=== PATIENT | female | born 1940 | race Caucasian/White ===

== ENCOUNTER → 2017-09-03 | Outpatient (CLI) | payer MEDICARE ==
[2015-04-14 18:02] VITALS: BP 130/77
[~2017-09-03] MED LIST: BUDESONIDE0.5 MG/2 M IH; CALCIUM 600 MG-1 TAB PO; DIFLUCAN200 M1 PO; HCTZ/TRIAMTEREN1 CA2 PO; TIROSINT100 MC1 PO; ZYRTEC ALLERGY10 MG PO
== END ==
LOC: MAMMO 09-02 13:45
DX: Z12.31 Encounter for screening mammogram for malignant neoplasm of breast (principal)

== ENCOUNTER → 2018-02-03 | Outpatient (CLI) | payer MEDICARE ==
[2015-04-14 18:02] VITALS: BP 130/77
== END ==
LOC: RAD 17:09
DX: I08.3 Combined rheumatic disorders of mitral, aortic and tricuspid valves (principal)

== ENCOUNTER → 2018-02-04 | Outpatient (CLI) | payer MEDICARE ==
[2015-04-14 18:02] VITALS: BP 130/77
== END ==
LOC: CARDREHAB 15:28
DX: R00.2 Palpitations (principal)

== ENCOUNTER → 2018-09-09 | Outpatient (CLI) | payer MEDICARE ==
[2015-04-14 18:02] VITALS: BP 130/77
== END ==
LOC: MAMMO 08:13
DX: Z12.31 Encounter for screening mammogram for malignant neoplasm of breast (principal)

== ENCOUNTER → 2018-09-09 | Outpatient (CLI) | payer MEDICARE ==
[2015-04-14 18:02] VITALS: BP 130/77
== END ==
LOC: RAD 08:16 → MAMMO 09:15 → RAD 09:15
DX: Z13.820 Encounter for screening for osteoporosis (principal); M85.88 Other specified disorders of bone density and structure, other site; M85.852 Other specified disorders of bone density and structure, left thigh; M85.851 Other specified disorders of bone density and structure, right thigh

== ENCOUNTER → 2020-03-29 | Outpatient (CLI) | payer MEDICARE ==
[2015-04-14 18:02] VITALS: BP 130/77
== END ==
LOC: MAMMO 15:45
DX: Z12.31 Encounter for screening mammogram for malignant neoplasm of breast (principal); Z80.3 Family history of malignant neoplasm of breast

== ENCOUNTER → 2020-03-29 | Outpatient (CLI) | payer MEDICARE ==
[2015-04-14 18:02] VITALS: BP 130/77
== END ==
LOC: VAS 15:46 → RAD 16:30
DX: I08.3 Combined rheumatic disorders of mitral, aortic and tricuspid valves (principal)

== ENCOUNTER → 2021-01-09 | Outpatient (CLI) | payer MEDICARE ==
[2015-04-14 18:02] VITALS: BP 130/77
== END ==
LOC: RAD 09:52 → MAMMO 10:00 → RAD 10:00
DX: M85.80 Other specified disorders of bone density and structure, unspecified site (principal)

== ENCOUNTER → 2021-05-16 | Outpatient (CLI) | payer MEDICARE | LOC: MAMMO 14:22 | DX: Z12.31 Encounter for screening mammogram for malignant neoplasm of breast (principal) ==

== ENCOUNTER → 2021-10-10 | Day surgery (SDC) | payer MEDICARE | LOC: MSO 06:29 | DX: H25.812 Combined forms of age-related cataract, left eye (principal); Z98.890 Other specified postprocedural states | CPT/HCPCS: 00142; J0171; J2250; V2632 ==

== ENCOUNTER → 2022-06-25 | Outpatient (CLI) | payer MEDICARE | LOC: MAMMO 08:15 | DX: Z12.31 Encounter for screening mammogram for malignant neoplasm of breast (principal) ==

== ENCOUNTER 2024-03-16 09:44 | Outpatient (RCR) | payer MEDICARE | END 2024-03-17 | disposition home or self-care (01) | LOC: PT | DX: G89.29 Other chronic pain (principal); M54.41 Lumbago with sciatica, right side; R93.7 Abnormal findings on diagnostic imaging of other parts of musculoskeletal system ==

== ENCOUNTER 2024-04-20 08:00 | Outpatient (RCR) | payer MEDICARE | END 2024-05-17 10:59 | disposition home or self-care (01) | LOC: PT 08:00 | DX: R93.7 Abnormal findings on diagnostic imaging of other parts of musculoskeletal system (principal); M54.41 Lumbago with sciatica, right side; G89.29 Other chronic pain ==

== ENCOUNTER → 2024-07-06 | Outpatient (CLI) | payer MEDICARE | LOC: MAMMO 08:29 | DX: N64.89 Other specified disorders of breast (principal) ==